=== PATIENT | female | born 1935 | race Caucasian/White ===

== ENCOUNTER 2021-12-19 13:35 | Outpatient (CLI) | payer MEDICARE, OTHER, SELFPAY ==
--- NOTE | 2021-12-19 14:01 | ECHO_ITS ---
Patient Info Name: Eloina Johns Age: 86 years : 1935 Gender: Female Ht: 66 in Wt: 193 lbs BSA: 2.05 m2 HR: 58 bpm BP: 170 / 83 mmHg Technical Quality: Good Exam Date: 12/19/2021 2:49 PM Exam Location: [facility] Patient Status: Outpatient Admit Date: 12/19/2021 Staff Ordering Physician: Kwasi Sanders MD Felt Finishing Supervisor: Jessica Ibrahim RDCS Attending Provider: Kwasi Sanders MD Referring Physician: Marilyn SINCLAIR; Exam Type: CA echo doppler color flow Study Info Indications R06.02 - Shortness of breath Complete two-dimensional, color flow and Doppler transthoracic echocardiogram is performed. Summary 1. Complete two-dimensional, color flow and Doppler transthoracic echocardiogram is performed. 2. Left ventricular chamber dimension is normal. 3. Left ventricular systolic function is normal, estimated at 60-65%. 4. There is mildly increased left ventricular wall thickness. 5. The left ventricular diastolic function is grade I diastolic dysfunction. 6. E/e' 13 is mildly elevated. 7. Global longitudinal strain is abnormal at -8.9%. 8. Left atrial chamber dimension is mildly enlarged. 9. There is mild aortic valve sclerosis. 10. No pulmonary hypertension, estimated pulmonary arterial systolic pressure is 33 mmHg. 11. There is trace pulmonic regurgitation. Left Ventricle E/e' 13 is mildly elevated. Global longitudinal strain is abnormal at -8.9%. Left ventricular chamber dimension is normal. Left ventricular systolic function is normal, estimated at 60-65%. There is mildly increased left ventricular wall thickness. The left ventricular diastolic function is grade I diastolic dysfunction. Right Ventricle Right ventricular systolic function is normal and with normal TAPSE 2.7 cm. Right ventricular chamber dimension is normal. Left Atria Left atrial chamber dimension is mildly enlarged. Right Atria Right atrial chamber dimension is normal. Aortic Valve The aortic valve is trileaflet. There is mild aortic valve sclerosis. There is no aortic valve stenosis. There is no aortic valve regurgitation. Pulmonic Valve There is trace pulmonic regurgitation. Mitral Valve There is no mitral valve stenosis. There is no mitral valve regurgitation. Tricuspid Valve There is no tricuspid valve regurgitation. No pulmonary hypertension, estimated pulmonary arterial systolic pressure is 33 mmHg. Pericardium/Pleural There is no pericardial effusion. Inferior Vena Cava Normal inferior vena cava with >50% collapse upon inspiration consistent with normal right atrial pressure, 5 mmHg. Aorta The aortic root size at the sinus of Valsalva is normal. Left Ventricular Outflow Tract Name Value Normal LVOT 2D LVOT Diameter 1.9 cm LVOT Doppler LVOT Peak Gradient 7 mmHg LVOT Mean Gradient 4 mmHg LVOT VTI 32 cm LVOT VTI/AV VTI Ratio 1.0 LVOT Stroke Volume 87 ml LVOT CO 5.6 l/min
--- NOTE | 2021-12-20 09:42 | WPDPFTINT ---
PFT Procedure Performed PFT Procedure Performed Spirometry with Pre/Post Bronchodilator Plethysmography (Lung Vol) Flow Vol Loop PFT Interpretation Lung volumes were measured with the body plethysmography method. The diminished expiratory reserve volume is due to obesity. The remainder lung volumes are essentially unremarkable. Spirometry showed diminished expiratory flow rates and a normal FEV1 to FVC ratio of 74%. Following administration of a bronchodilator there was significant increase in expiratory flow rates. Lung diffusion capacity was not measured as patient could not cooperate for it. Impression: Non specific pattern; significant response to bronchodilator could possibly indicate underlying obstructive airway disease. Clinical correlation advised.
--- NOTE | 2021-12-20 09:46 | WPDSIXMINUTE ---
Six Minute Walk Procedure Procedure Performed Pulmonary Stress Test (6 min walk) Six Minute Walk Six Minute Walk: This 6 minute walk test was carried out with the patient breathing ambient air. The pre walk oxyhemoglobin saturation was 94%. The patient walked 500 ft with no stops during walking. During the walk, the oxyhemoglobin saturation remained 90% or higher. Impression: No evidence of oxyhemoglobin desaturation on this testing.
== END 2021-12-19 13:36 | disposition home or self-care (01) ==
LOC: ANHCARD 13:37
PROVIDERS: Visit Provider Internal Medicine Pulmonary Disease
DX: R06.02 Shortness of breath (principal); Z87.891 Personal history of nicotine dependence; J61 Pneumoconiosis due to asbestos and other mineral fibers
CPT/HCPCS: 93306; 94060; 94618; 94726

== ENCOUNTER 2022-01-19 10:50 | Outpatient (CLI) | payer MEDICARE, OTHER, SELFPAY ==
--- NOTE | ~2022-01-19 | XR_ITS ---
XR chest 2V DATE: 01/19/2022 11:59 INDICATION: Shortness of breath, cough TECHNIQUE: PA and lateral views COMPARISON: 01/19/2022 speech therapy modified barium swallow examination FINDINGS: There is barium within the stomach from the modified barium swallow study earlier today. Borderline heart size. Aortic arch calcification. No hilar or mediastinal enlargement. There is promi nent calcification of the abdominal aorta without evidence of aneurysm. No pulmonary infiltrate or consolidation, pleural effusion or pulmonary vascular congestion or pneumo thorax. There is mild elevation of the right leaf of the diaphragm. Diffuse osteopenia. IMPRESSION: No active pulmonary disease Aortic calcification Mild right diaphragm elevation Reviewed, dictated and finalized at location B. [employer] LOCATING [employer]
--- NOTE | ~2022-01-19 | XR_ITS ---
EXAMINATION: XR barium swallow modified DATE: 01/19/2022 11:58 INDICATION: Dysphagia, unspecified TECHNIQUE: Modified barium esophagram was performed by myself who administered fluoroscopy, in conju nction with speech pathologist who administered barium in varying consistencies as per speech patholo gist documentation. This was recorded on tape. A single fluoroscopic spot image was recorded. Fluoros copy exposure time was 2.1 minutes. The DAP for this procedure was 1.89 Gycm2. FINDINGS: Oral stage: Adequate function. Pharyngeal phase: Adequate function. Laryngeal penetration: None. Aspiration: None. Laryngeal sensitivity: Present. IMPRESSION: Normal modified barium swallow. Please refer to speech pathologist findings and specific feeding recommendations. Reviewed, dictated and finalized at location A. NT SERVICES ASSISTANT
[2022-01-19 12:20] LABS: Basophils Absolute Auto 0.1 K/mm3 (0.0-0.1); Eosinophils Absolute Auto 0.4 K/mm3 (0-0.3); Eosinophils Percent Auto 4.7 % (0-4.4); Hematocrit 37.9 % (37.0-47.0); Hemoglobin 11.7 g/dL (12.0-15.0); Immature Granulocyte Absolute 0.04 K/mm3 (0.00-0.031); Immature Granulocyte Percent A 0.5 % (0-0.5); Lymphocytes Absolute Auto 1.51 K/mm3 (0.9-3.2); Lymphocytes Percent Auto 19.1 % (18.3-44.2); Mean Corpuscular HGB Conc 30.9 g/dl (32-36); Mean Corpuscular Hemoglobin 29.8 pg (26-34); Mean Corpuscular Volume 96.4 fl (80-100); Mean Platelet Volume 10.8 fl (7.4-10.4); Monocytes Absolute Auto 0.7 K/mm3 (0.1-0.6); Monocytes Percent Auto 8.3 % (2.6-8.5); Neutrophils Absolute Auto 5.3 K/mm3 (1.3-6.7); Neutrophils Percent Auto 66.4 % (45.5-73.1); Platelet Count Result 314 k/mm3 (150-375); Red Blood Count 3.93 M/mm3 (4.2-5.4); Red Cell Distribution Width 12.9 % (11.5-14.5); White Blood Count 7.9 K/mm3 (4.5-10.0)
[2022-01-19 12:26] LABS: Alanine Aminotransferase 16 U/L (6-35); Albumin Level 4.5 g/dL (3.5-5.1); Alkaline Phosphatase 54 U/L (38-126); Anion Gap 10 mmol/L (8-16); Aspartate Amino Transferase 24 U/L (14-36); Bilirubin,Total 0.3 mg/dL (0.2-1.3); Blood Urea Nitrogen 23 mg/dL (7-17); Carbon Dioxide 25 mmol/L (22-30); Chloride 98 mmol/L (98-107); Estimated Glomerular Filt Rate 43; Glucose 214 mg/dL (65-110); Potassium 4.2 mmol/L (3.4-5.0); Sodium 133 mmol/L (137-145)
[2022-01-19 12:35] LABS: NT Pro B Type Natriuretic Pept 284 pg/mL (5-100)
--- NOTE | 2022-02-01 16:48 | REHSTMBS ---
This patient was seen for an Modified Barium Swallow study at the request of her physician. Patient reported difficulty swallowing pills. She was presented with thin liquid contrast medium per spoon and per cup, and per straw, pudding mixed with semi-solid contrast medium per spoon, cracker coated with the semi-solid mixture, and fruit also coated with the semi-solid mixture. She exhibited quick swallows with no evidence of penetration or aspiration. There was no significant pharyngeal residue observed after each swallow. Results suggest this patient's swallowing skills are within functional limits. She may remain on Regular Diet and Regular Liquids consistencies. Patient was instructed in the use of head flexion to assist with swallowing pills, liquids, and [id number] foods. The patient voiced good understanding of results and recommendations. Thank you for this referral. Assessment and note entered by Octavia Rae, WORD PROCESSING OPERATOR
== END 2022-01-19 10:51 | disposition home or self-care (01) ==
PROVIDERS: Visit Provider Internal Medicine Pulmonary Disease
DX: R06.02 Shortness of breath (principal); R13.10 Dysphagia, unspecified; I70.0 Atherosclerosis of aorta
CPT/HCPCS: 36415; 71046; 80053; 83880; 85025; 92611

== ENCOUNTER 2022-02-14 07:59 | Outpatient (CLI) | payer MEDICARE, OTHER, SELFPAY ==
--- NOTE | 2022-02-22 16:43 | WPDSLEEPSTUD ---
Sleep Study Date of Study: 02/14/22 Ordering Provider: Kwasi Sanders MD Interpreting Physician: Octavia Dalal MD Sleep Study Type: Split Polysomnogram Height: 1.68 m Weight: 87.09 kg Body Mass Index: 30.9 Neck Circumference (inches): 16.5 Cameron: 10 Reason for Sleep Study Hypersomnolence Sleep History Eloina Johns is an 86-year-old woman with excessive daytime sleepiness. She always falls asleep if she sitting and reading or watching television. She may fall asleep if she is a passenger in a car for an hour without a break. She always sleeps during naps. She has several medical conditions, chronic kidney disease, coronary artery disease, diabetes mellitus, hypertension, GERD and COPD. She has never been a cigarette smoker. She does not use alcohol. She has been evaluated for shortness of breath and has been on oxygen after recent hospitalization. Her most recent 6 minute walk on December 20 showed that she did not require supplemental oxygen with exertion however her saturation started at 94% and was sustained at 90% into the recovery. Normally, patient have an increase in saturation toward the baseline during recovery. The patient did not fill out a sleep questionnaire there for many details about her sleep are not known. [facility] Past Medical History Medical History CKD (chronic kidney disease) stage 3, GFR 30-59 ml/min Coronary artery disease Diabetes mellitus Essential hypertension GERD (gastroesophageal reflux disease) GI bleed IBS (irritable bowel syndrome) MDD (major depressive disorder) Menopause Myoclonus Renal disorder Surgical History Surgical History History of total knee arthroplasty Family History Family History Mother Cancer antigen 125 (CA 125) elevation Mother Heart disease Father Emphysema (subcutaneous) (surgical) resulting from a procedure Father COPD (chronic obstructive pulmonary disease) Son Emphysema (subcutaneous) (surgical) resulting from a procedure Other Coronary artery disease Diabetes mellitus History of fainting spells of unknown cause Hyperlipidemia Dyslipidemia Hypertension Social History Social History Smoking status: Never smoker Second hand tobacco smoke exposure: No Alcohol intake: never Substance use: never Substance use type: does not use Gender identity (if verbalized by the patient): Female Medications Home Medications Medication Instructions Recorded Confirmed Type eszopiclone 1 mg tablet (Lunesta) 1 mg PO QHS #2 tabs 10/31/21 10/31/21 Rx albuterol sulfate 90 mcg/actuation 1 puff inhalation Q4H PRN 11/08/21 History aerosol inhaler amitriptyline-chlordiazepoxide 25 1 tablet PO DAILY PRN 11/08/21 History mg-10 mg tablet amlodipine 10 mg tablet 10 mg PO DAILY 11/08/21 History aspirin 81 mg capsule 81 mg PO DAILY 11/08/21 History blood sugar diagnostic (Blood 11/08/21 History Glucose Test strips) cetirizine 10 mg tablet 10 mg PO DAILY PRN 11/08/21 History cholecalciferol (vitamin D3) 50 50 mcg PO DAILY 11/08/21 History mcg (2,000 unit) capsule clopidogrel 75 mg tablet 75 mg PO DAILY 11/08/21 History coenzyme Q10 10 mg capsule 10 mg PO ONCE 11/08/21 History dicyclomine 10 mg capsule 10 mg PO QID 11/08/21 History diphenhydramine HCl 25 mg capsule 25 mg PO QHS PRN 11/08/21 History doxazosin 4 mg tablet 4 mg PO DAILY 11/08/21 History duloxetine 60 mg capsule,delayed 60 mg PO DAILY 11/08/21 History release fenofibrate nanocrystallized 145 145 mg PO DAILY 11/08/21 History mg tablet insulin aspart U-100 100 unit/mL 1 sliding scale dose subcut 11/08/21 History (3 mL) subcutaneous pen (Novolog USEASDIRECTD FlexPen U-100 Insulin aspart) insulin glargine 100 unit/mL (3 10
[2022-03-02 13:45] VITALS: BMI 30.9
== END 2022-02-15 06:38 | disposition home or self-care (01) ==
LOC: ANHCSM 08:02
PROVIDERS: Visit Provider Internal Medicine Pulmonary Disease
DX: G47.33 Obstructive sleep apnea (adult) (pediatric) (principal); N18.9 Chronic kidney disease, unspecified; I25.10 Atherosclerotic heart disease of native coronary artery without angina pectoris; E11.22 Type 2 diabetes mellitus with diabetic chronic kidney disease; I12.9 Hypertensive chronic kidney disease with stage 1 through stage 4 chronic kidney disease, or unspecified chronic kidney disease; K21.9 Gastro-esophageal reflux disease without esophagitis; J44.9 Chronic obstructive pulmonary disease, unspecified
CPT/HCPCS: 95811